=== PATIENT | female | born 1990 | race Hispanic/Latino ===

== ENCOUNTER 2022-06-19 09:47 | Inpatient (IN) | payer BC, SELFPAY ==
[2022-06-19 10:22] VITALS: BMI 53.8
[2022-06-19] MEDS ORDERED: hydrALAZINE 20 MG/ML VIAL SLOW IVP PRN ×2 (11:46→15:20)
[2022-06-19] MEDS ORDERED: Lactated Ringer's 1,000 ML IV SCH (11:46)
[2022-06-19] MEDS ORDERED: Bicitra 30 ML UDCUP PO PRN (11:46)
[2022-06-19] MEDS ORDERED: Ondansetron PF 4 MG/2 ML Vial IVP PRN ×2 (11:46→15:20)
[2022-06-19] MEDS ORDERED: Famotidine/PF 20 mg/2ml Vial SLOW IVP PRN (11:46)
[2022-06-19] MEDS ORDERED: Promethazine HCl 25 MG/ML VIAL IM PRN (11:46)
[2022-06-19] MEDS ORDERED: CEFAZOLIN 2 GM in Sodium Chloride 0.9% 100 ML IVPB SCH (11:46)
[2022-06-19] MEDS ORDERED: Dexamethasone 4 mg/ml Vial ONE (11:47)
[2022-06-19] MEDS ORDERED: Phenylephrine 10 MG/ML VIAL ONE (11:47)
[2022-06-19] MEDS ORDERED: Morphine PF 10 MG/10 ML VIAL ONE (11:47)
[2022-06-19] MEDS ORDERED: Fentanyl 100 MCG/2 ML VIAL ONE (11:47)
[2022-06-19] MEDS ORDERED: Ondansetron PF 4 MG/2 ML Vial ONE (11:47)
[2022-06-19] MEDS ORDERED: Oxytocin 10 UNITS/ML VIAL ONE ×2 (11:48→13:07)
[2022-06-19] MEDS ORDERED: Ibuprofen 800 MG TAB PO SCH ×2 (14:00→15:30)
[2022-06-19] MEDS ORDERED: Tranexamic Acid 1,000 MG in Sodium Chloride 0.9% 250 ML 250 ML IVPB SCH (14:30)
[2022-06-19] MEDS ORDERED: Misoprostol 200 MCG TAB PR SCH (14:30)
[2022-06-19] MEDS ORDERED: HYDROcodone/Acetaminophen 5/325 mg Tablet PO PRN (15:20)
[2022-06-19] MEDS ORDERED: Lanolin Ointment 7 GM TUBE TOP PRN (15:20)
[2022-06-19] MEDS ORDERED: Boostrix 0.5 ML (Tdap) VIAL (>/=7 yrs of age) IM ONE (15:20)
[2022-06-19] MEDS ORDERED: diphenhydrAMINE 25 MG CAP PO PRN (15:20)
[2022-06-19] MEDS ORDERED: Simethicone Chewable 80 MG TAB PO PRN (15:20)
[2022-06-19] MEDS ORDERED: Bisacodyl 10 MG SUPP PR PRN (15:20)
[2022-06-19] MEDS: Docusate 100 MG CAP PO SCH (22:08)
[2022-06-19] MEDS: Ibuprofen 800 MG TAB PO SCH (22:08)
[2022-06-19] MEDS: Ferrous Sulfate 325 MG TAB PO SCH (22:08)
[2022-06-20 04:13] LABS: Hemoglobin 10.6 g/dL (12.0-15.5); Mean Corpuscular HGB CONC 32.4 g/dL (32.0-36.0); Mean Corpuscular Hemoglobin 26.5 pg (27.0-33.0); Mean Corpuscular Volume 81.8 fl (81.6-98.3); Mean Platelet Volume 11.1 fl (7.4-10.4); Platelet Count 198 10x3/uL (150-450); RBC Distribution Width 16.4 % (11.5-14.5); White Blood Cell (WBC) Count 13.4 10x3/uL (3.5-10.5)
[2022-06-20] MEDS: Ibuprofen 800 MG TAB PO SCH ×3 (05:18→21:13)
[2022-06-20] MEDS: Prenatal Vitamin 1 TAB PO SCH (09:10)
[2022-06-20] MEDS: Docusate 100 MG CAP PO SCH ×2 (09:10→21:13)
[2022-06-20] MEDS: Ferrous Sulfate 325 MG TAB PO SCH ×2 (09:11→21:13)
[2022-06-20] MEDS: HYDROcodone/Acetaminophen 5/325 mg Tablet PO PRN ×2 (13:08→17:15)
[2022-06-21] MEDS: Ibuprofen 800 MG TAB PO SCH ×3 (05:35→21:38)
[2022-06-21] MEDS: HYDROcodone/Acetaminophen 5/325 mg Tablet PO PRN ×3 (09:00→23:25)
[2022-06-21] MEDS: Docusate 100 MG CAP PO SCH ×2 (09:00→21:38)
[2022-06-21] MEDS: Prenatal Vitamin 1 TAB PO SCH (09:01)
[2022-06-21] MEDS: Ferrous Sulfate 325 MG TAB PO SCH ×2 (09:01→23:17)
[2022-06-22] MEDS: Ibuprofen 800 MG TAB PO SCH (05:28)
[2022-06-22] MEDS: Ferrous Sulfate 325 MG TAB PO SCH (07:58)
[2022-06-22 08:15] VITALS: BP 132/66; TEMP 98
[2022-06-22] MEDS: Prenatal Vitamin 1 TAB PO SCH (08:16)
[2022-06-22] MEDS: Docusate 100 MG CAP PO SCH (08:16)
== END 2022-06-22 11:45 | disposition home or self-care (01) | DRG 787 ==
LOC: CSHLD 09:47 → CSHPP 15:25
PROVIDERS: ADMIT Obstetrics & Gynecology; ATTEND Obstetrics & Gynecology
PROC: 10D00Z1 Extraction of Products of Conception, Low, Open Approach (ICD-10-PCS; principal; 2022-06-19)
DX: O34.211 Maternal care for low transverse scar from previous cesarean delivery (principal); K56.50 Intestinal adhesions [bands], unspecified as to partial versus complete obstruction; Z37.0 Single live birth; Z3A.39 39 weeks gestation of pregnancy; O34.13 Maternal care for benign tumor of corpus uteri, third trimester; D25.2 Subserosal leiomyoma of uterus; E66.9 Obesity, unspecified; O99.214 Obesity complicating childbirth; O24.425 Gestational diabetes mellitus in childbirth, controlled by oral hypoglycemic drugs; O99.62 Diseases of the digestive system complicating childbirth; R00.0 Tachycardia, unspecified; O99.893 Other specified diseases and conditions complicating puerperium
CPT/HCPCS: 36415; 36416; 51702; 85025; 85027; 86780; 86850; 86900; 86901; 87340; J1100; J2274; J2370; J2405; J2590; J3010; J7050; S0028; U0002